=== PATIENT | female | born 1990 | race Caucasian/White ===

== ENCOUNTER 2020-12-15 15:56 | Outpatient (CLI) | payer BC ==
--- NOTE | 2020-12-15 16:33 | XRAY Report ---
PROCEDURE: Sacrum/Coccyx INDICATIONS: COCCYX PAIN TECHNIQUE: 3 views of the sacrum and coccyx acquired. COMPARISON: None FINDINGS: Bones: No fractures or dislocations. Bilateral sacroiliac joint osteoarthritic changes are seen sli ghtly worse on the left side. No bony erosion or ankylosis is seen. No suspicious bony lesions. Soft tissues: Visualized bowel gas pattern is normal. No suspicious soft tissue densities. Intraut erine device is noted. IMPRESSION: No acute sacral or coccygeal fracture. Left worse than right bilateral sacroiliac joint osteoarthriti s. No ankylosis or bony erosion. Reviewed by: Jag Montalvo MD on 12/15/2020 4:31 PM PDT Approved by: Jag Montalvo MD on 12/15/2020 4:31 PM PDT Station ID: [id number]
== END 2020-12-15 15:57 | disposition home or self-care (01) ==
LOC: DI.S 15:56
PROVIDERS: ATTEND Emergency Medicine
DX: M47.898 Other spondylosis, sacral and sacrococcygeal region (principal)

== ENCOUNTER 2023-09-19 12:40 | Outpatient (CLI) | payer BC ==
[2023-09-19 15:07] LABS: HCG,QUALITATIVE BLOOD POSITIVE
== END 2023-09-19 12:41 | disposition home or self-care (01) ==
LOC: LAB.S 12:40
PROVIDERS: ATTEND Emergency Medicine
DX: O99.891 Other specified diseases and conditions complicating pregnancy (principal); R10.31 Right lower quadrant pain
CPT/HCPCS: 36415; 84702; 84703

== ENCOUNTER 2023-10-04 11:52 | Emergency (ER) | payer BC ==
[2023-10-04 12:40] LABS: BASOPHILS # (AUTO) 0.1 10^3/uL (0.0-0.1); BASOPHILS % (AUTO) 0.6 %; EOSINOPHILS # (AUTO) 0.1 10^3/uL (0.0-0.7); EOSINOPHILS % (AUTO) 0.7 %; HCT - HEMATOCRIT 39.5 % (37.0-47.0); HGB - HEMOGLOBIN 12.7 g/dL (12.0-16.0); LYMPHOCYTES # (AUTO) 2.9 10^3/uL (1.5-3.5); LYMPHOCYTES % (AUTO) 24.9 %; MEAN CORPUSCULAR HGB CONC 32.2 g/dL (32.0-36.0); MEAN CORPUSCULAR VOLUME 80.8 fL (81.0-99.0); MONOCYTES # (AUTO) 0.8 10^3/uL (0.0-1.0); MONOCYTES % (AUTO) 7.2 %; NEUTROPHILS # (AUTO) 7.7 10^3/uL (1.5-6.6); NEUTROPHILS % (AUTO) 66.3 %; PLT - PLATELET COUNT 351 10^3/uL (130-450); RED BLOOD COUNT 4.89 10^6/uL (4.20-5.40); RED CELL DISTRIBUTION WIDTH 15.9 % (12.0-15.0); WHITE BLOOD COUNT 11.6 x10^3/uL (4.8-10.8)
[2023-10-04 12:51] VITALS: O2SAT 100
[2023-10-04 12:52] LABS: BILIRUBIN,URINE NEGATIVE (NEGATIVE); GLUCOSE, URINE (UA) NEGATIVE (NEGATIVE); KETONES,URINE (UA) NEGATIVE (NEGATIVE); LEUKOCYTE ESTERASE, URINE NEGATIVE (NEGATIVE); NITRITE,URINE NEGATIVE (NEGATIVE); OCCULT BLOOD,URINE MODERATE (NEGATIVE); PH,URINE 6.5 PH (5.0-7.5); PROTEIN,URINE NEGATIVE (NEGATIVE); UROBILINOGEN,URINE 0.2 (NORMAL) E.U./dL (NORMAL)
[2023-10-04 12:54] LABS: CLARITY,URINE CLEAR (CLEAR)
[2023-10-04 12:56] LABS: ALBUMIN 4.2 g/dL (3.2-5.5); ALBUMIN/GLOBULIN RATIO 1.6 (1.0-2.2); BILIRUBIN,TOTAL 0.8 mg/dL (0.2-1.0); CALCIUM 9.7 mg/dL (8.5-10.3); CREATININE 0.6 mg/dL (0.6-1.3); POTASSIUM 3.5 mmol/L (3.5-4.5); TOTAL PROTEIN 6.9 g/dL (6.4-8.9)
[2023-10-04 12:59] LABS: BACTERIA,URINE Few /HPF (None Seen); SQUAMOUS EPITHELIAL CELL,UR FEW Squamous (<= Few); WBC,URINE 0-3 /HPF (0-5)
--- NOTE | 2023-10-04 14:29 | ED Physician Documentation ---
History of Present Illness - Stated complaint Stated Complaint: 8 WK OB/SPOTTING - Chief complaint Chief Complaint: General - History obtained from History obtained from: Patient - History of Present Illness Timing: Today Pain level max: 0 Pain level now: 0 - Additonal information Additional information: 32-year-old female, 1 para 0 presents to the emergency department stating that she believes she is about 8 weeks . She states that she started having light vaginal spotting today. No cramping. No pelvic pain. No dysuria. Has an appointment with her OB in [place] on Monday. Nothing makes it better or worse. No trauma. Review of Systems Constitutional: denies: Fever GI: denies: Abdominal Pain, Nausea, Vomiting, Diarrhea : denies: Dysuria, Frequency, Hesitancy, Discharge PD PAST MEDICAL HISTORY - Past Medical History Past Medical History: No Cardiovascular: None Respiratory: None Neuro: None Endocrine/Autoimmune: None GI: None CURRICULUM AND INSTRUCTION SPECIALIST: None : None HEENT: None Psych: None Musculoskeletal: None Derm: None - Past Surgical History Past Surgical History: Yes HEENT: Tonsil/Adenoidectomy - Present Medications Home Medications: Ambulatory Orders Medication Instructions Recorded Confirmed Pnv No.95/Ferrous Fum/Folic AC 1 each PO DAILY 10/04/23 10/04/23 [ Tablet] - Allergies Allergies/Adverse Reactions: Allergies Allergy/AdvReac Type Severity Reaction Status Date / Time No Known Drug Allergies Allergy Verified 10/04/23 12:39 - Social History Does the pt smoke?: No Smoking Status: Never smoker Does the pt drink ETOH?: No Does the pt have substance abuse?: No - Immunizations Immunizations are current?: Yes - POLST Patient has POLST: No PD ED PE NORMAL - Vitals Vital signs reviewed: Yes - General General: Alert and oriented X 3, No acute distress - HEENT HEENT: Moist mucous membranes - Neck Neck: Supple, no meningeal sign - Cardiac Cardiac: RRR, Strong equal pulses - Respiratory Respiratory: No respiratory distress, Clear bilaterally - Abdomen Abdomen: Soft, Non tender, Non distended - Back Back: No CVA TTP - Derm Derm: Warm and dry - Extremities Extremities: No edema - Neuro Neuro: Alert and oriented X 3 - Psych Psych: Normal mood, Normal affect Results - Vitals Vitals: Vital Signs - 24 hr 10/04/23 10/04/23 12:40 14:50 Temperature 36.6 C 36.3 C L Heart Rate 65 63 Respiratory 16 16 Rate Blood Pressure 115/74 107/80 O2 Saturation 100 100 Oxygen O2 Source Room air - Labs Labs: Laboratory Tests 10/04/23 10/04/23 10/04/23 12:34 12:34 12:45 WBC 11.6 H RBC 4.89 Hgb 12.7 Hct 39.5 MCV 80.8 L MCH 26.0 L MCHC 32.2 RDW 15.9 H Plt Count 351 MPV 9.0 Neut # (Auto) 7.7 H Lymph # (Auto) 2.9 Luce # (Auto) 0.8 Eos # (Auto) 0.1 Baso # (Auto) 0.1 Absolute Nucleated RBC 0.00 Nucleated RBC % 0.0 Sodium 135 Potassium 3.5 Chloride 103 Carbon Dioxide 26 Anion Gap 6.0 BUN 11 Creatinine 0.6 Estimated GFR (MDRD) 115 Glucose 86 Calcium 9.7 Total Bilirubin 0.8 AST 13 ALT 11 Alkaline Phosphatase 40 L Total Protein 6.9 Albumin 4.2 Globulin 2.7 Albumin/Globulin Ratio 1.6 Lipase 13 Beta HCG, Quant 64604.1 Urine Color YELLOW Urine Clarity CLEAR Urine pH 6.5 Ur Specific [place] <=1.005 Urine Protein NEGATIVE Urine Glucose (UA) NEGATIVE Urine Ketones NEGATIVE Urine Occult Blood MODERATE H Urine Nitrite NEGATIVE Urine Bilirubin NEGATIVE Urine Urobilinogen 0.2 (NORMAL) Ur Leukocyte Esterase NEGATIVE Urine RBC 6-10 H Urine WBC 0-3 Ur Squamous Epith Cells FEW Squamous Urine Bacteria Few Ur Microscopic Review INDICATED Urine Culture Comments NOT INDICATED PD Medical Decision Making - ED course Complexity details: reviewed results, re-evaluated patient, considered differential, d/w patient ED course: 32-year-old female approximately 8 weeks presents with light vaginal spotting that resolved upon arrival to the emergency department. No significant lab abnormalities. Her hCG level was 86,881. A bedside ultrasound was performed that shows an intrauterine with a heart rate of approximately 157 bpm. Gestational sac is around 6 weeks 6 days and crown-rump length is around 6 weeks 4 days. She declines a formal ultrasound at this time. Also appears to have a uterine fibroid. Recommend that she follow-up with her OB on Monday for further care and to return if she worsens. No evidence of ectopic or heterotopic. No pelvic pain or abdominal pain. Patient counseled regarding signs and symptoms for which I believe and urgent re- evaluation would be necessary. Patient with good understanding of and agreement to plan and is comfortable going home at this time This document was made in part using voice recognition software. While efforts are made to proofread this document, sound alike and grammatical errors may occur. Departure - Departure Disposition: 01 Home, Self Care Clinical Impression: Vaginal bleeding affecting early Condition: Good Instructions: ED Miscarriage Poss Follow-Up: your, OB in 3 days [Other] Comments: You should have your hCG levels rechecked in about 3 days. Your hCG level today is 86,881. Your bedside ultrasound shows an intrauterine with a heart rate of approximately 157 bpm. Your gestational sac is measuring around 6 weeks 6 days and the crown-rump length is around 6 weeks 4 days. These dates are not as accurate as will be obtained by a formal ultrasound. Your blood work otherwise does not show any significant abnormalities. Please follow-up with your OB for further care and return if you worsen, especially for increasing bleeding or pain. You do appear to have a fibroid in your uterus as well, this can be confirmed with the ultrasound with OB. Forms: PCP List Discharge Date/Time: 10/04/23 14:50
[2023-10-04 14:57] VITALS: BP 107/80
== END 2023-10-04 14:50 | disposition home or self-care (01) ==
LOC: ED 11:52
DX: O20.9 Hemorrhage in early pregnancy, unspecified (principal); Z3A.08 8 weeks gestation of pregnancy
CPT/HCPCS: 36415; 80053; 81001; 81003; 83690; 84702; 85025; 87086; 99283